=== PATIENT | male | born 1970 | race Hispanic/Latino ===

== ENCOUNTER 2017-11-04 00:56 | Emergency (ER) | payer SELFPAY ==
[2017-11-04] MEDS ORDERED: Lidocaine/Epi 1% 1:100000 20 ML IJ ONE (03:31)
[2017-11-04] MEDS ORDERED: Lidocaine 1% w Epi 1:100,000 Inj ONE (03:32)
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
[2017-11-04] MEDS ORDERED: Povidone Iodine Topical 10% Sol ONE (03:40)
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
[2017-11-04] MEDS ORDERED: Tdap Vaccine 0.5 ml Vial (10-64 yrs) IM ONE ×2 (04:42→04:59)
[2017-11-04 05:04] LABS: BASO # 0.1 K/uL (0.0-0.2); BASO % 0.8 % (0.0-2.0); EOS # 0.2 K/uL (0.0-0.7); EOS % 2.5 % (0.0-4.0); HEMOGLOBIN 14.8 g/dL (12.0-18.0); LYMPH # 3.3 K/uL (1.0-4.3); LYMPH % 38.5 % (20.0-40.0); MEAN CELL VOLUME 88.9 fl (80.0-94.0); MEAN CORPUSCULAR HEMOGLOBIN 30.8 pg (27.0-31.0); MEAN CORPUSCULAR HGB CONC 34.6 g/dL (33.0-37.0); MEAN PLATELET VOLUME 7.6 fl (7.2-11.7); MONO # 0.6 K/uL (0.0-0.8); MONO % 6.7 % (0.0-10.0); NEUT # 4.4 K/uL (1.8-7.0); NEUT % 51.5 % (50.0-75.0); NRBC % 0.1 % (0.0-0.0); RBC 4.82 Mil/uL (4.40-5.90); RED CELL DISTRIBUTION WIDTH 13.3 % (11.5-14.5); WHITE BLOOD COUNT 8.6 K/uL (4.8-10.8)
[2017-11-04 05:10] LABS: ALB/GLOB RATIO 1.3 (1.0-2.1); ALT/SGPT 45 U/L (21-72); AST/SGOT 29 U/L (17-59); BLOOD UREA NITROGEN 9 mg/dl (9-20); CALCIUM 8.9 mg/dL (8.4-10.2); GFR NON-AFRICAN AMERICAN > 60
[2017-11-04 07:39] VITALS: RESP 19
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
--- NOTE | 2017-11-04 08:28 | ED PDOC ---
- Laboratory Results Result Diagrams: 11/04/17 04:25 11/04/17 04:25 - ECG O2 Sat by Pulse Oximetry: 96 - Progress Re-evaluation Time: :08 Condition: Improved (Awake alert oriented x 3 No focal neuro deficits. Denies SI /HI) Disposition - Clinical Impression Clinical Impression: Head injury, Facial laceration, Alcohol intoxication - POA Present On Arrival: None - Disposition Referrals: [facility] [Outside] Disposition: Routine/Home Disposition Time: 09:09 Condition: FAIR Prescriptions: Naproxen [Naprosyn] 500 mg PO Q12H #20 tab Instructions: Alcohol Use - When Is Drinking a Problem?, Laceration Repair With Maryam (DC), Minor Head Injury (DC) Forms: [employer] (Italian)
[2017-11-04 09:39] VITALS: BP 120/78; PULSE 70; TEMP 97
[2017-11-05 13:14] VITALS: O2SAT 96
== END 2017-11-04 09:40 | disposition home or self-care (01) ==
LOC: H.ER 00:56
DX: F10.129 Alcohol abuse with intoxication, unspecified (principal); S01.81XA Laceration without foreign body of other part of head, initial encounter; S09.90XA Unspecified injury of head, initial encounter; Y04.0XXA Assault by unarmed brawl or fight, initial encounter; Y92.89 Other specified places as the place of occurrence of the external cause; K21.9 Gastro-esophageal reflux disease without esophagitis
CPT/HCPCS: 12011; 70450; 80053; 85025; 90471; 90715; 96372; 99285; G0480; J1630; J2060

== ENCOUNTER 2017-11-07 07:52 | Emergency (ER) | payer OTHER ==
[2017-11-07 08:02] VITALS: O2SAT 98; BMI 37.2
--- NOTE | 2017-11-07 10:13 | RAD ---
PROCEDURE: Left Knee Radiographs. HISTORY: COMPARISON: None available. FINDINGS: BONES: No acute displaced fracture. JOINTS: No dislocation. JOINT EFFUSION: No significant joint effusion. OTHER FINDINGS: None. IMPRESSION: No acute displaced fracture, dislocation, or significant joint effusion identified. If symptoms persist, or if there is continued clinical concern, x-ray follow-up in 7-10 days should be considered.
--- NOTE | 2017-11-07 10:39 | CT ---
Date of service: 11/07/2017 PROCEDURE: CT MAXILLOFACIAL BONES WITHOUT CONTRAST HISTORY: Left orbital injury COMPARISON: None available. TECHNIQUE: Contiguous axial CT images of the maxillofacial bones were obtained. Coronal and sagittal reformats were generated. Radiation dose: Total exam DLP = 837.33 mGy-cm. This CT exam was performed using one or more of the following dose reduction techniques: Automated exposure control, adjustment of the mA and/or kV according to patient size, and/or use of iterative reconstruction technique. FINDINGS: NASAL BONES: No evidence of acute nasal bone fracture. ORBITS: Orbits and contents unremarkable. Bony orbits intact. Globes intact and lenses appropriately located. There are no retrobulbar hemorrhages or collections. Optic nerves and extraocular musculature unremarkable. PARANASAL SINUSES/ MASTOIDS: Mild to moderate mucosal thickening left maxillary antrum and mild mucosal thickening which is associated with sclerosis and thickening of the posterolateral wall. Mild mucosal thickening right maxillary antrum. . There is also mild mucosal thickening in the ethmoid sinuses extending superiorly into the inferior margin of the frontal sinus. . MAXILLA: Left premaxillary soft tissue swelling extending superiorly into the periorbital and supraorbital (particularly prominent along the superolateral border of the orbital rim and left frontotemporal scalp region). . MANDIBLE/ TEMPOROMANDIBULAR JOINTS: Unremarkable. SKULL BASE: Unremarkable. TEMPORAL BONES: Middle ears and mastoid grossly unremarkable. OTHER FINDINGS: None. IMPRESSION: Left premaxillary soft tissue swelling extending superiorly into the periorbital and supraorbital (particularly prominent along the superolateral border of the orbital rim and left frontotemporal scalp region). Mild to moderate mucosal thickening left maxillary antrum and mild mucosal thickening which is associated with sclerosis and thickening of the posterolateral wall. Mild mucosal thickening right maxillary antrum. . There is also mild mucosal thickening in the ethmoid sinuses extending superiorly into the inferior margin of the frontal sinus. .
--- NOTE | 2017-11-07 11:41 | CT ---
Date of service: 11/07/2017 PROCEDURE: CT Cervical Spine without contrast HISTORY: Neck pain. COMPARISON: None available. TECHNIQUE: Axial computed tomography images were obtained of the cervical spine without the use of intravenous contrast. Coronal and sagittal reformatted images were created and reviewed. Radiation dose: Total exam DLP = 458.50 mGy-cm. This CT exam was performed using one or more of the following dose reduction techniques: Automated exposure control, adjustment of the mA and/or kV according to patient size, and/or use of iterative reconstruction technique. FINDINGS: VERTEBRAE: No acute compression fractures nor retropulsed fragments. Vertebral bodies exhibit normal stature on. There is straightening of the normal cervical lordosis which could be due to patient positioning gantry however underlying element of muscle spasm may contribute. DISCS/SPINAL CANAL/NEURAL FORAMINA: Mild multilevel degenerative spondylosis. At the C2-C3 level, there is relatively adequate disc height. Small central and bilateral (left slightly larger than right) disc protrusion that indents the ventral surface of the thecal sac though does not cause significant canal compromise or cord compression. The minimal degenerative squaring of the uncovertebral joints left greater than right. Facets a prominent. Exit foramina appear adequate. Note made of localized short-segment calcification of the posterior longitudinal ligament along the superior posterior cortical margin of the C3 segment. At the C3-C4 level, there is adequate disc height. Minimal broad-based bulge of the posterior annulus is present. Uncovertebral joints are prominent as are the facets. . Disc flattens the ventral surface of the thecal sac slightly though does not cause any significant canal compromise nor cord compression. Exit foramina appear adequate on the right and marginal to minimally narrowed on the left. At the C4-C5 level, there is mild disc space narrowing more so along the posterior disc margin. Small broad-based disc bulge ridge complex contiguous with slightly overgrown uncovertebral joints. The disc results in flattening of the ventral surface of the thecal sac and may just reach the ventral surface of the cord. Central canal appears marginal to minimally narrowed. Exit foramina appear adequate. At the C5-C6 level, there is relatively adequate disc height. . Evaluation of the canal at this level and C6-C7 levels as well as C7-T1 levels limited due to crossing streak and beam hardening artifact arising from dense clavicles and shoulder girdles. . The central bony canal appears marginal to minimally narrowed. The facets are slightly overgrown at each level however the exit foramina do appear adequate as well. PARASPINAL SOFT TISSUES: Unremarkable. OTHER FINDINGS: None. IMPRESSION: No acute fractures. Mild straightening of the normal cervical lordosis possibly due to patient positioning gantry however underlying element spasm may contribute. Minor multilevel degenerative spondylosis of the cervical spine as detailed above.
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
[2017-11-07 12:38] VITALS: BP 127/96; PULSE 80; RESP 18; TEMP 97.6
--- NOTE | 2017-11-07 13:30 | RAD ---
PROCEDURE: Left Hip X-ray Radiographs. HISTORY: Left hip pain injury COMPARISON: None. FINDINGS: BONES: Normal. No fracture. JOINTS: Normal. SOFT TISSUES: Normal. OTHER FINDINGS: None. IMPRESSION: No definitive evidence of acute displaced fracture nor dislocation. If symptoms persist or occult fracture suspected clinically recommend repeat radiographs 7-10 days as most fractures should become radiographically evident in this timeframe.
--- NOTE | 2017-11-07 14:54 | RAD ---
Date of service: 11/07/2017 PROCEDURE: Right Index finger radiographs. HISTORY: index finger pain injury COMPARISON: None available. TECHNIQUE: AP radiograph of the right hand, as well as spot oblique and lateral images of index finger were obtained. FINDINGS: RIGHT INDEX FINGER: Comminuted mildly displaced fracture involving the medial proximal aspect of the 2nd proximal phalanx with intra-articular extension. Remainder of the right hand (as seen on the AP view) grossly intact. JOINTS: No dislocation. SOFT TISSUES: Soft tissue swelling. No evidence radiopaque foreign body. OTHER FINDINGS: None. IMPRESSION: Comminuted mildly displaced fracture involving the medial proximal aspect of the 2nd proximal phalanx with intra-articular extension. Soft tissue swelling.
== END 2017-11-07 12:40 | disposition home or self-care (01) ==
LOC: H.ER 07:52
DX: S09.90XA Unspecified injury of head, initial encounter (principal); S05.92XA Unspecified injury of left eye and orbit, initial encounter; S62.610A Displaced fracture of proximal phalanx of right index finger, initial encounter for closed fracture; Y04.2XXA Assault by strike against or bumped into by another person, initial encounter

== ENCOUNTER 2017-11-17 04:50 | Emergency (ER) | payer OTHER ==
[2017-11-17 04:51] VITALS: BMI 37.2
[2017-11-17 05:15] VITALS: BP 107/66; PULSE 89; RESP 16; TEMP 98.2; O2SAT 100
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
== END 2017-11-17 06:19 | disposition home or self-care (01) ==
LOC: H.ER 04:50
DX: Z48.02 Encounter for removal of sutures (principal)